=== PATIENT | male | born 1985 | race Caucasian/White ===

== ENCOUNTER 2018-07-06 21:34 | Emergency (ER) | payer OTHER ==
[2018-07-06 21:45] VITALS: BP 128/82
--- NOTE | 2018-07-06 21:58 | ER Document Report ---
HPI - HPI Time Seen by Provider: 07/06/18 21:46 Pain Level: 3 Context: Patient is a 32-year-old male who presents to the emergency department with a chief complaint of a toothache. He states he has been having this problem for a few weeks now. He has not seen a dentist for this problem because he does not have dental insurance. Eating aggravates the pain. He describes pain is an aching pain. He took Motrin 800 mg this evening, which has helped the pain. He has an appointment with a dentist in [place] on July 31, but is looking to get antibiotics for his tooth pain. Past Medical History - Social History Smoking Status: Unknown if Ever Smoked Chew tobacco use (# tins/day): No Frequency of alcohol use: Rare Drug Abuse: None Family History: Reviewed & Not Pertinent Patient has suicidal ideation: No Patient has homicidal ideation: No Renal/ Medical History: Denies: Hx Peritoneal Dialysis Vertical Provider Document - INFECTION CONTROL TRAVEL OUTSIDE OF THE [place] IN LAST 30 DAYS: No - HEENT HEENT: Atraumatic Notes: Tooth decay noted to tooth #31. - NECK Neck: Normal Inspection, Supple - RESPIRATORY Respiratory: Breath Sounds Normal, No Respiratory Distress - NEURO Level of Consciousness: Awake, Alert, Appropriate - DERM Integumentary: Warm, Dry Course - Re-evaluation Re-evalutation: 07/06/18 22:35 Patient's physical exam and history is most consistent with a infected tooth. Patient is able to swallow, no facial swelling noted, airways pain, vital signs are normal. I do not suspect Errol's angina, apical abscess, or airway obstruction. The patient will be started on oral antibiotics. I have given the patient education on their antibiotics. Patient was given instructions to follow-up with a dentist this week. Return precautions were given. Verbal discharge instructions were given. Patient verbalized understanding. Patient is stable for discharge. - Vital Signs Vital signs: Temp Pulse Resp BP Pulse Ox 99.0 F 79 17 128/82 H 97 07/06/18 21:41 07/06/18 21:41 07/06/18 21:41 07/06/18 21:41 07/06/18 21:41 Discharge - Discharge Clinical Impression: Toothache Condition: Stable Disposition: HOME, SELF-CARE Instructions: Dentist, Penicillin V K ([facility]) Additional Instructions: You were seen in the emergency department for a toothache. You have been prescribed antibiotics. Please take all your medication as prescribed. You make take 600 mg of ibuprofen and 1000 mg of acetamenophen every 6 hours as needed for the pain. Please keep the appointment you have with the dentist you have. If you develop a fever greater than 100.4 degrees F, or have worsening symptoms, please return to the emergency department. Prescriptions: Penicillin V Potassium [Penicillin Vk 250 mg Tablet] 500 mg PO BID #40 tablet Referrals: [facility] [Provider Group] - Follow up as needed
== END 2018-07-06 22:00 | disposition home or self-care (01) ==
LOC: ER 21:34
DX: K08.9 Disorder of teeth and supporting structures, unspecified (principal)
CPT/HCPCS: 99283